=== PATIENT | male | born 1990 | race American Indian/Alaskan Native ===

== ENCOUNTER 2017-11-20 14:54 | Emergency (ER) | payer MEDICAID ==
[~2017-11-20] VITALS: Ht 165.1 cm; Wt 70.0 kg
[~2017-11-20 14:54] MED LIST: CLIN-26 PO; CLIN-79 PO; CLIN-80 PO; HYDR-569 PO
[2017-11-20] MEDS ORDERED: ANBESOL TP (16:18)
[2017-11-20] MEDS ORDERED: CLIN300C54 PO (16:18)
[2017-11-20] MEDS ORDERED: NAPR-56 PO (16:18)
[2017-11-20 16:30] VITALS: BP 126/88
== END 2017-11-20 16:34 | disposition home or self-care (01) ==
LOC: ER 14:54
DX: K08.89 Other specified disorders of teeth and supporting structures (principal); F12.10 Cannabis abuse, uncomplicated; F17.200 Nicotine dependence, unspecified, uncomplicated; Z88.1 Allergy status to other antibiotic agents; Z88.0 Allergy status to penicillin
CPT/HCPCS: 99283

== ENCOUNTER 2018-03-10 02:37 | Emergency (ER) | payer MEDICAID ==
[~2018-03-10] VITALS: Ht 162.6 cm; Wt 75.0 kg
[~2018-03-10 02:37] MED LIST changes: -CLIN-79 PO; -CLIN-80 PO; +CLIN150C8 PO; +CLIN300C54 PO; +CLIN300C85 PO
[2018-03-10 04:03] VITALS: BP 129/86
== END 2018-03-10 04:04 | disposition home or self-care (01) ==
LOC: ER 02:38
DX: S01.81XA Laceration without foreign body of other part of head, initial encounter (principal); S09.90XA Unspecified injury of head, initial encounter; J45.909 Unspecified asthma, uncomplicated; Z86.14 Personal history of Methicillin resistant Staphylococcus aureus infection; F17.210 Nicotine dependence, cigarettes, uncomplicated; F12.90 Cannabis use, unspecified, uncomplicated; Z88.0 Allergy status to penicillin; Z88.1 Allergy status to other antibiotic agents; Z79.899 Other long term (current) drug therapy; Z56.0 Unemployment, unspecified; Y08.89XA Assault by other specified means, initial encounter; Y93.89 Activity, other specified; Y92.89 Other specified places as the place of occurrence of the external cause; Y99.8 Other external cause status
CPT/HCPCS: 12011; 70450; 99284; L0172

== ENCOUNTER 2019-07-13 00:51 | Emergency (ER) | payer MEDICAID, OTHER ==
[~2019-07-13] VITALS: Ht 152.4 cm; Wt 65.9 kg
[~2019-07-13 00:51] MED LIST changes: +CLIN-90 PO; -CLIN300C85 PO; +HYDR-4383 PO; -HYDR-569 PO
[2019-07-13] MEDS ORDERED: naproxen 500mg tablet PO ONE (02:20)
[2019-07-13] MEDS ORDERED: HYDROcodone/acetaminophen 5mg/325mg tablet PO ONE (02:20)
[2019-07-13] MEDS ORDERED: clindamycin 150mg capsule PO ONE (02:20)
[2019-07-13] MEDS ORDERED: CLIN300C53 PO (02:24)
[2019-07-13] MEDS ORDERED: NAPR-56 PO (02:24)
[2019-07-13] MEDS ORDERED: LACT1CAP65 PO (02:24)
[2019-07-13 02:39] VITALS: BP 136/83
== END 2019-07-13 02:32 | disposition home or self-care (01) ==
LOC: ER 00:52
DX: K04.7 Periapical abscess without sinus (principal); J45.909 Unspecified asthma, uncomplicated; F41.9 Anxiety disorder, unspecified; F12.90 Cannabis use, unspecified, uncomplicated; Z86.14 Personal history of Methicillin resistant Staphylococcus aureus infection; Z56.0 Unemployment, unspecified; Z88.0 Allergy status to penicillin; Z88.1 Allergy status to other antibiotic agents; Z88.8 Allergy status to other drugs, medicaments and biological substances; Z79.899 Other long term (current) drug therapy
CPT/HCPCS: 99284